=== PATIENT | male | born 1945 ===

== ENCOUNTER 2016-03-14 13:00 | Outpatient (RCR) | payer OTHER | END 2016-04-10 | disposition home or self-care (01) | LOC: PTY 13:00 | DX: S92.354D Nondisplaced fracture of fifth metatarsal bone, right foot, subsequent encounter for fracture with routine healing (principal); M76.70 Peroneal tendinitis, unspecified leg; X58.XXXD Exposure to other specified factors, subsequent encounter | CPT/HCPCS: 97110; 97140; G0283 ==